=== PATIENT | male | born 1970 | race Caucasian/White ===

== ENCOUNTER 2017-02-11 02:03 | Inpatient (IN) | payer OTHER ==
[~2017-02-11] VITALS: Ht 185.4 cm; Wt 136.3 kg
[2017-02-11 03:10] LABS: HEMATOCRIT 46.1 % (38.0-50.0); MCH 27.2 PG (29.0-34.0); MCHC 33.6 G/DL (30.0-36.0); MEAN PLAT.VOLUME 9.1 uM^3 (9.0-12.4); PLATELET COUNT 309 K/uL (156-360); RBC DIS.WIDTH-CV 16.9 % (11.8-14.6); RBC DIS.WIDTH-SD 46.5 % (39-53); RED BLOOD COUNT 5.69 M/uL (4.00-5.50); WHITE BLOOD COUNT 12.1 K/uL (4.1-10.2)
[2017-02-11 03:21] LABS: CHLORIDE 97 mEq/L (99-109); POTASSIUM 4.1 mEq/L (3.7-5.4); SODIUM 134 mEq/L (136-147)
[2017-02-11 03:24] LABS: GLUCOSE 124 mg/dL (70-99)
[2017-02-11 03:25] LABS: ANION GAP 17 MEQ/L (2-14); TOTAL BILIRUBIN 0.7 mg/dL (0.0-1.0)
[2017-02-11 03:27] LABS: ALKALINE PHOSPHATASE 101 IU/L (3-129)
[2017-02-11 03:28] LABS: GFR ESTIMATE (CALCULATED) > 59 mL/min/ (58.99-99999); UREA NITROGEN (BUN) 15 mg/dL (9-23)
[2017-02-11 03:31] LABS: LIPASE 510 U/L (1.0-51.0)
[2017-02-11 04:51] LABS: AMYLASE 285 IU/L (1-118)
[2017-02-11 04:56] LABS: SERUM ETHYL ALCOHOL 25 mg/dL
[2017-02-11 05:00] LABS: ADD MIUA? YES; BILIRUBIN NEGATIVE; BLOOD NEGATIVE; COLOR YELLOW ((YELLOW)); GLUCOSE (STRIP) NEGATIVE; KETONES 5; LEUKOCYTES NEGATIVE; NITRITE NEGATIVE; PROTEIN (STRIP) 30; UROBILINOGEN 0.2 MG/DL (0.2-1.0)
[2017-02-11 05:06] LABS: BACTERIA NONE SEEN /HPF; EPITHELIAL CELLS RARE /HPF; GRANULAR CASTS 15-20 /LPF; HYALINE CASTS 0-5 /LPF; MUCUS 2+ /LPF; RED BLOOD CELLS 0-5 /HPF (0-5); UCUL ADDED? NO; WHITE BLOOD CELLS 0-5 /HPF (0-5)
[2017-02-11 05:19] LABS: AMPHETAMINE NEGATIVE (500 ng/mL); BARBITURATES NEGATIVE (200 ng/mL); BENZODIAZEPINES NEGATIVE (150 ng/mL); COCAINE NEGATIVE (150 ng/mL); INTERNAL CONTROLS VALID? YES; METHADONE NEGATIVE (200 ng/mL); METHAMPHETAMINE NEGATIVE (500 ng/mL); OPIATES (MORPHINE) NEGATIVE (100 ng/mL); OXYCODONE NEGATIVE (100 ng/mL); PHENCYCLIDINE NEGATIVE (25 ng/mL); PROPOXYPHENE NEGATIVE (300 ng/mL); THC CANNABINOIDS NEGATIVE (50 ng/mL); TRICYCLIC ANTIDEPRESSANTS NEGATIVE (300 ng/mL)
[2017-02-11] MEDS ORDERED: PRILOSEC20 MG PO (08:37)
[2017-02-11] MEDS ORDERED: DAILY VALUE1 EACH PO (08:38)
[2017-02-11 09:24] LABS: TROP-I INTERPRETATION NEGATIVE; TROPONIN-I < 0.01 ng/mL (0.0-0.30)
[2017-02-11 16:46] LABS: TROP-I INTERPRETATION NEGATIVE; TROPONIN-I < 0.01 ng/mL (0.0-0.30)
[2017-02-11 20:00] VITALS: BP 142/98
[2017-02-11 23:46] VITALS: BP 154/100
[2017-02-12] VITALS (7 sets, daily range): BP systolic 117–154; BP diastolic 71–100
[2017-02-12 01:18] LABS: TROP-I INTERPRETATION NEGATIVE; TROPONIN-I < 0.01 ng/mL (0.0-0.30)
[2017-02-12 07:01] LABS: HEMATOCRIT 38.8 % (38.0-50.0); MCH 26.9 PG (29.0-34.0); MCV 84.2 FL (86-99); RBC DIS.WIDTH-CV 16.2 % (11.8-14.6); RED BLOOD COUNT 4.61 M/uL (4.00-5.50); WHITE BLOOD COUNT 7.7 K/uL (4.1-10.2)
[2017-02-12 07:06] LABS: ALKALINE PHOSPHATASE 86 IU/L (3-129); AMYLASE 143 IU/L (1-118); ANION GAP 8 MEQ/L (2-14); CHLORIDE 106 MEQ/L (99-109); GFR ESTIMATE (CALCULATED) > 59 mL/min/ (58.99-99999); GLUCOSE 98 mg/dL (70-99); LIPASE 213 U/L (1.0-51.0); POTASSIUM 3.7 MEQ/L (3.7-5.4); SAMPLE HEMOLYSIS CHECK 0; SAMPLE ICTERIC CHECK 0; SAMPLE LIPEMIA CHECK 0; SODIUM 140 MEQ/L (136-147); TOTAL BILIRUBIN 0.8 MG/DL (0.0-1.0); UREA NITROGEN (BUN) 10 mg/dL (9-23)
[2017-02-12 07:12] LABS: ANISOCYTOSIS 1+; EOSINOPHIL (%) 2.7 % (0-5); EOSINOPHIL COUNT 0.2 K/uL (0-0.3); IMMATURE GRANULOCYTE (%) 0.4 % (0.0-0.7); INSTRUMENT ABS NEUTROPHIL CT 5.4 K/uL; LYMPHOCYTE COUNT 1.3 K/uL (1.0-2.8); MEAN PLAT.VOLUME 9.2 uM^3 (9.0-12.4); MICROCYTOSIS 1+; MONOCYTE (%) 8.8 % (3-12); MONOCYTE COUNT 0.7 K/uL (0-0.8); NEUTROPHIL (%) 70.4 % (45-76); NEUTROPHIL COUNT 5.4 K/uL (1.8-6.4); PLAT.SUFFICIENCY ADEQUATE
[2017-02-12 07:13] LABS: PLATELET COUNT 192 K/uL (156-360)
[2017-02-13 03:38] VITALS: BP 131/78
[2017-02-13 07:35] VITALS: BP 129/80
[2017-02-13] MEDS ORDERED: NICOTINE PATCH1 EAC1 TD (09:54)
[2017-02-13] MEDS ORDERED: EFFEXOR37.5 MG PO (09:54)
[2017-02-13] MEDS ORDERED: TYLENOL ARTHRI650 MG PO (10:40)
[2017-02-13 11:38] VITALS: BP 134/85
== END 2017-02-13 11:53 | disposition home or self-care (01) | DRG 439 ==
LOC: EME 02:03 → 5EAST 05:08 → EDOF 05:08 → ENRESERV 05:09 → 5EAST 14:40
PROVIDERS: Family Medicine; Physician Assistant; Physician Assistant Medical
DX: K85.20 Alcohol induced acute pancreatitis without necrosis or infection (principal); R65.10 Systemic inflammatory response syndrome (SIRS) of non-infectious origin without acute organ dysfunction; F10.239 Alcohol dependence with withdrawal, unspecified; E87.1 Hypo-osmolality and hyponatremia; E86.0 Dehydration; E87.2 Acidosis; E83.39 Other disorders of phosphorus metabolism; F32.9 Major depressive disorder, single episode, unspecified; Y90.1 Blood alcohol level of 20-39 mg/100 ml; R74.0 Nonspecific elevation of levels of transaminase and lactic acid dehydrogenase [LDH]; E66.9 Obesity, unspecified; F17.200 Nicotine dependence, unspecified, uncomplicated; Z98.84 Bariatric surgery status; Z68.39 Body mass index [BMI] 39.0-39.9, adult
CPT/HCPCS: 74176; 80053; 81003; 82150; 83690; 83735; 84100; 84484; 85025; 85027; 99281; 99284; C9113; G0480; J1170; J1650; J1885; J2060; J2270; J2405; J3411; J7030; J7120

== ENCOUNTER 2017-04-09 12:07 | Inpatient (IN) | payer OTHER ==
[~2017-04-09] VITALS: Ht 185.4 cm; Wt 130.8 kg
[~2017-04-09 12:07] MED LIST: DAILY VALUE1 EACH PO; EFFEXOR37.5 MG PO; NICOTINE PATCH1 EAC1 TD; PRILOSEC20 MG PO; TYLENOL ARTHRI650 MG PO
[2017-04-09 12:35] LABS: APPEARANCE SL.HAZY ((CLEAR)); BILIRUBIN NEGATIVE; BLOOD NEGATIVE; COLOR YELLOW ((YELLOW)); GLUCOSE (STRIP) NEGATIVE; KETONES NEGATIVE; LEUKOCYTES NEGATIVE; NITRITE NEGATIVE; PROTEIN (STRIP) 30; SPECIFIC GRAVITY 1.026 (1.000-1.030); UROBILINOGEN 0.2 MG/DL (0.2-1.0)
[2017-04-09 12:40] LABS: HEMATOCRIT 49.1 % (38.0-50.0); HEMOGLOBIN 16.5 G/DL (12.5-16.6); MCH 28.4 PG (29.0-34.0); MCHC 33.6 G/DL (30.0-36.0); MCV 84.5 FL (86-99); PLATELET COUNT 361 K/uL (156-360); RBC DIS.WIDTH-CV 17.9 % (11.8-14.6); RBC DIS.WIDTH-SD 52.2 % (39-53); RED BLOOD COUNT 5.81 M/uL (4.00-5.50); WHITE BLOOD COUNT 15.4 K/uL (4.1-10.2)
[2017-04-09 12:41] LABS: BACTERIA RARE /HPF; EPITHELIAL CELLS RARE /HPF; HYALINE CASTS 40-50 /LPF; MUCUS 4+ /LPF; RED BLOOD CELLS 0-5 /HPF (0-5); UCUL ADDED? NO; WHITE BLOOD CELLS 0-5 /HPF (0-5)
[2017-04-09 12:53] LABS: ALBUMIN 3.9 g/dL (3.2-4.8); CHLORIDE 99 mEq/L (99-109)
[2017-04-09 12:54] LABS: POTASSIUM 4.2 mEq/L (3.7-5.4); SODIUM 139 mEq/L (136-147)
[2017-04-09 12:56] LABS: GLUCOSE 151 mg/dL (70-99)
[2017-04-09 12:58] LABS: TOTAL BILIRUBIN 0.8 mg/dL (0.0-1.0)
[2017-04-09 12:59] LABS: ALKALINE PHOSPHATASE 107 IU/L (3-129); CREATININE 1.1 mg/dL (0.6-1.3); GFR ESTIMATE (CALCULATED) > 59 mL/min/ (58.99-99999)
[2017-04-09 13:01] LABS: AST (GOT) 26 IU/L (2-34); UREA NITROGEN (BUN) 13 mg/dL (9-23)
[2017-04-09 13:02] LABS: ALT (GPT) 33 IU/L (3-49)
[2017-04-09 13:03] LABS: LIPASE 577 U/L (1.0-51.0)
[2017-04-09] MEDS ORDERED: EFFEXOR XR150 MG PO (15:08)
[2017-04-09 15:56] VITALS: BP 172/107
[2017-04-09 23:15] VITALS: BP 118/67
[2017-04-10 00:27] VITALS: BP 154/95
[2017-04-10 07:12] LABS: ALBUMIN 3.3 G/DL (3.2-4.8); ALKALINE PHOSPHATASE 89 IU/L (3-129); ALT (GPT) 27 IU/L (3-49); AST (GOT) 32 IU/L (2-34); CHLORIDE 104 MEQ/L (99-109); CREATININE 0.8 MG/DL (0.6-1.3); GFR ESTIMATE (CALCULATED) > 59 mL/min/ (58.99-99999); GLUCOSE 130 mg/dL (70-99); LIPASE 215 U/L (1.0-51.0); MAGNESIUM 2.1 mg/dl (1.3-2.7); SODIUM 137 MEQ/L (136-147); TOTAL BILIRUBIN 0.9 MG/DL (0.0-1.0); TOTAL PROTEIN 5.8 G/DL (6.4-8.3); UREA NITROGEN (BUN) 9 mg/dL (9-23)
[2017-04-10 07:13] LABS: POTASSIUM 3.2 MEQ/L (3.7-5.4)
[2017-04-10 08:33] LABS: HEMATOCRIT 43.8 % (38.0-50.0); HEMOGLOBIN 14.6 G/DL (12.5-16.6); MCH 28.7 PG (29.0-34.0); MCHC 33.3 G/DL (30.0-36.0); MCV 86.1 FL (86-99); PLATELET COUNT 286 K/uL (156-360); RBC DIS.WIDTH-CV 18.3 % (11.8-14.6); RBC DIS.WIDTH-SD 53.6 % (39-53); RED BLOOD COUNT 5.09 M/uL (4.00-5.50); WHITE BLOOD COUNT 10.1 K/uL (4.1-10.2)
[2017-04-10 08:45] VITALS: BP 148/92
[2017-04-10 08:55] VITALS: BP 148/92
[2017-04-10 16:51] VITALS: BP 135/83
[2017-04-10 20:16] VITALS: BP 149/83
[2017-04-11 06:24] LABS: HEMATOCRIT 38.9 % (38.0-50.0); HEMOGLOBIN 12.7 G/DL (12.5-16.6); MCH 28.5 PG (29.0-34.0); MCHC 32.6 G/DL (30.0-36.0); MCV 87.4 FL (86-99); PLATELET COUNT 206 K/uL (156-360); RBC DIS.WIDTH-CV 17.6 % (11.8-14.6); RBC DIS.WIDTH-SD 55.9 % (39-53); RED BLOOD COUNT 4.45 M/uL (4.00-5.50); WHITE BLOOD COUNT 7.1 K/uL (4.1-10.2)
[2017-04-11 06:52] LABS: CHLORIDE 105 MEQ/L (99-109); CREATININE 0.8 MG/DL (0.6-1.3); GFR ESTIMATE (CALCULATED) > 59 mL/min/ (58.99-99999); POTASSIUM 3.6 MEQ/L (3.7-5.4); SODIUM 139 MEQ/L (136-147); UREA NITROGEN (BUN) 9 mg/dL (9-23)
[2017-04-11 06:55] LABS: GLUCOSE 94 mg/dL (70-99)
[2017-04-11 08:21] VITALS: BP 136/89
[2017-04-11 16:27] VITALS: BP 119/72
[2017-04-12] VITALS: BP 149/90
[2017-04-12 06:59] LABS: CHLORIDE 101 MEQ/L (99-109); CREATININE 0.8 MG/DL (0.6-1.3); GFR ESTIMATE (CALCULATED) > 59 mL/min/ (58.99-99999); GLUCOSE 105 mg/dL (70-99); POTASSIUM 3.5 MEQ/L (3.7-5.4); SODIUM 137 MEQ/L (136-147); UREA NITROGEN (BUN) 6 mg/dL (9-23)
[2017-04-12 08:19] VITALS: BP 144/83
[2017-04-12 16:18] VITALS: BP 135/97
[2017-04-12 23:34] VITALS: BP 121/82
[2017-04-13 04:52] VITALS: BP 121/82
[2017-04-13 07:22] LABS: CHLORIDE 104 MEQ/L (99-109); CREATININE 0.7 MG/DL (0.6-1.3); GFR ESTIMATE (CALCULATED) > 59 mL/min/ (58.99-99999); GLUCOSE 100 mg/dL (70-99); POTASSIUM 3.3 MEQ/L (3.7-5.4); SODIUM 138 MEQ/L (136-147); UREA NITROGEN (BUN) 4 mg/dL (9-23)
[2017-04-13 07:59] VITALS: BP 125/86
[2017-04-13 08:13] LABS: MAGNESIUM 1.8 mg/dl (1.3-2.7)
[2017-04-13] MEDS ORDERED: OXYCODONE HCL5 MG PO ×2 (11:40→13:25)
== END 2017-04-13 15:51 | disposition home or self-care (01) | DRG 439 ==
LOC: EME 12:07 → 5SOUTH 14:11 → EDOF 14:11 → ENRESERV 14:13 → 5SOUTH 15:28
PROVIDERS: Internal Medicine; Physician Assistant Medical
DX: K85.20 Alcohol induced acute pancreatitis without necrosis or infection (principal); I10 Essential (primary) hypertension; F10.239 Alcohol dependence with withdrawal, unspecified; F17.200 Nicotine dependence, unspecified, uncomplicated; K21.9 Gastro-esophageal reflux disease without esophagitis; K40.90 Unilateral inguinal hernia, without obstruction or gangrene, not specified as recurrent; F39 Unspecified mood [affective] disorder; Z90.49 Acquired absence of other specified parts of digestive tract; Z98.84 Bariatric surgery status
CPT/HCPCS: 74177; 80048; 80053; 81003; 82948; 83690; 83735; 85027; 90686; 99281; 99285; J1170; J1650; J2270; J2405; J3411; J3475; J3480; J7030; J7040; J7050